=== PATIENT | female | born 1995 | race African-American/Black ===

== ENCOUNTER 2017-08-20 01:00 | Emergency (ER) | payer MEDICAID ==
[~2017-08-20 01:00] MED LIST: ALBU0.086 INH; ALBU8I INH; SPRI28TA PO
--- NOTE | 2017-08-20 02:02 | PD ---
HPI Chief Complaint Upper abdominal pain Date Seen: Aug 20, 2017 Time Seen: 01:55 Travel History International Travel<30 Days: No Contact w/Intl Traveler<30Days: No Known Affected Area: No History of Present Illness HPI 21-year-old black female G 2 P0 at [address] Paul complaints of upper abdominal pain this evening. Denies bleeding or leakage of fluid. heart rate tracing is reactive and that we see no contractions are regular basis Weeks Gestation: 36 Para: 0 : 2 History Obstetric History Obstetric History Early loss Social History Alcohol Use: No Tobacco Use: No Substance Abuse: No Allergies-Medications (Allergen,Severity, Reaction): Coded Allergies: No Known Allergies (Verified , 06/12/15) Home Meds Active Scripts Albuterol Sulfate 8 GM Inhaler (Ventolin Hfa) 8 Gm Aero, 1 PUFF INH Q4H Y for PRN, #1 BOX * SHAKE WELL BEFORE USE * Prov:Tom Bhandari MD 03/23/14 Albuterol Sulfate (Proventil Ud 0.083% (2.5 Mg/3 Ml)) 2.5 Mg/3 Ml Inha, 2.5 MG INH Q6 Y for WHEEZING, #30 BOX Prov:Tom Bhandari MD 03/23/14 Reported Medications Norgestimate-Ethinyl Estradiol (Sprintec 28) 0.25-35 mg-Mcg Tab, 1 TAB PO DAILY for Control, #1 PACK 0 Refills 09/20/16 Review of Systems General / Constitutional: No: Fever, Weight Gain, Chills, Other Eyes: No: Diploplia, Blurred Vision, Visual changes, Pain, Photophobia HENT: No: Headaches, Vertigo, Lightheadedness Cardiovascular: No: Irregular Rhythm, Chest Pain or Discomfort, Palpitations, Tachycardia, Syncope, Varicosities, Edema, Cyanosis Respiratory: No: Cough, Short of Breath, Other Gastrointestinal: Abdominal Pain, No: Nausea, Vomiting, Diarrhea Genitourinary: No: Decreased Urinary Output, Oliguria Musculoskeletal: No: Limited ROM, Weakness, Cramping, Edema, Pain Skin: No Rash, No Itching, No Dryness, No Lumps, No Change in Pigmentation, No Change in Nails, No Alopecia, No Lesions Neurologic: No: Weakness, Dizziness, Syncope, Focal Abnormalities, Coordination Problem, Headache, Slurred Speech, Seizures Psychiatric: No: Depression, Suicidal Ideations, Homicidal Ideation Endocrine: No: Heat Intolerance, Cold Intolerance, Polydipsia, Polyuria, Other Physical Exam Narrative GENERAL: Well-nourished, well-developed patient. SKIN: Warm and dry. HEAD: Normocephalic and atraumatic. EYES: No scleral icterus. No injection or drainage. ENT: No nasal drainage noted. Mucous membranes pink. Airway patent. NECK: Supple, trachea midline. No JVD. CARDIOVASCULAR: Regular rate and rhythm without murmurs, gallops, or rubs. RESPIRATORY: Breath sounds equal bilaterally. No accessory muscle use. BREASTS: Bilateral exam showed no masses , no retractions, no nipple discharge. ABDOMEN/GI: Abdomen soft, non-tender, bowel sounds present, no rebound, no guarding Gravid to [36-] weeks size Fundal Height: [36-] GENITOURINARY: External Genitalia: intact and normal in appearance BUS glands: [-] Cervix: [-post] Dilatation: [2-3-] Effacement: [-50] Station: [-3] Presentation: [vtx-] Membranes: [intact ] Uterine Contractions: [none seen-] FHT's: Category: [1-] Baseline: [-133] Reactive: [yes-] Variability: [-mod] Decels: [0-] EXTREMITIES: No cyanosis or edema. BACK: Nontender without obvious deformity. No CVA tenderness. NEUROLOGICAL: Awake and alert. Motor and sensory grossly within normal limits. Five out of 5 muscle strength in all muscle groups. Normal speech. Data Data Labs Urine dipstick is negative MDM Interpretation(s) Patient is a 21-year-old black female 36 weeks presents with upper abdominal pain. No bleeding or leakage of fluid. heart rate tracing is reactive. No regular contractions seen. Exam shows a cervix is 2-3 cm 50% and -3 very posterior, patient may been kaushal some to have this much cervical change and a primary up so that certainly could've been some minimal uterine activity going on and not seeing that now she's having much less pain now Plan Plan to discharge patient home to bedrest. The patient was offered a pain shot was she did not want. She can use Tylenol by mouth, bedrest, heating pad on the abdomen, drink plenty fluid for hydration. Diagnosis Diagnosis: Primary Impression: 36 weeks gestation of Additional Impression: Upper abdominal pain Disposition: 01 DISCHARGE HOME Condition: Stable Sander Edmond II, MD Aug 20, 2017 02:02
[2017-08-20 02:55] LABS: BLOOD, URINE NEG (NEG); GLUCOSE,URINE NEG (NEG); KETONE, URINE NEG (NEG); NITRITE,URINE NEG (NEG); PH, URINE 6.5 (5.0-8.5); URINE COLOR YELLOW (YELLW/STRAW)
[2017-08-20 03:15] LABS: BACTERIA, URINE MOD /hpf; CALCIUM OXALATE CRYSTALS,URINE OCC /hpf; COMMENT (UR) CULTURE INDICATED; CULTURE IF INDICATED CULTURE INDICATED; RBC, URINE 0-3 /hpf (0-3); SQUAMOUS EPITHELIAL CELL URINE > 8 /hpf (0-5)
== END 2017-08-20 02:03 | disposition home or self-care (01) ==
LOC: HOBED 01:00
DX: O26.893 Other specified pregnancy related conditions, third trimester (principal); R10.10 Upper abdominal pain, unspecified; Z3A.36 36 weeks gestation of pregnancy
CPT/HCPCS: 59025; 81001; 87086

== ENCOUNTER 2017-09-19 00:05 | Inpatient (IN) | payer MEDICAID ==
[2017-09-19] VITALS (179 sets, daily range): BP systolic 112–159; BP diastolic 64–131; PULSE 76–117; RESP 14–20; TEMP 98.6–99.6; O2SAT 98–100
[~2017-09-19] VITALS: Ht 165.1 cm; Wt 107.0 kg
[2017-09-19] MEDS ORDERED: LACTATED RINGER'S 1000 ML INJ 1,000 ML IV PRN (00:47)
--- NOTE | 2017-09-19 00:47 | HHI.HP ---
HPI Chief Complaint Contractions and leaking fluid Date Seen: Sep 19, 2017 Time Seen: 00:42 Travel History International Travel<30 Days: No Contact w/Intl Traveler<30Days: No Known Affected Area: No History of Present Illness HPI Patient is 22-year-old black female at 40 weeks who presents clinically contractions and leaking fluid her per vagina. Amnio sure is negative, however she is kaushal every other minute and dilated [address] Paul for care. Patient is GBS positive . heart rate tracing is reactive and contractions are seen every other minutes Weeks Gestation: 40 Para: 0 : 2 Last Menstrual Period: Sep 19, 2017 Miscarriage: 1 History Obstetric History Obstetric History 1 early loss Social History Alcohol Use: No Tobacco Use: No Substance Abuse: No Allergies-Medications (Allergen,Severity, Reaction): Coded Allergies: No Known Allergies (Verified , 06/12/15) Home Meds Active Scripts Albuterol Sulfate 8 GM Inhaler (Ventolin Hfa) 8 Gm Aero, 1 PUFF INH Q4H Y for PRN, #1 BOX * SHAKE WELL BEFORE USE * Prov:Tom Bhandari MD 03/23/14 Albuterol Sulfate (Proventil Ud 0.083% (2.5 Mg/3 Ml)) 2.5 Mg/3 Ml Inha, 2.5 MG INH Q6 Y for WHEEZING, #30 BOX Prov:Tom Bhandari MD 03/23/14 Reported Medications Norgestimate-Ethinyl Estradiol (Sprintec 28) 0.25-35 mg-Mcg Tab, 1 TAB PO DAILY for Control, #1 PACK 0 Refills 09/20/16 Review of Systems General / Constitutional: No: Fever, Weight Gain, Chills, Other Eyes: No: Diploplia, Blurred Vision, Visual changes, Pain, Photophobia HENT: No: Headaches, Vertigo, Lightheadedness Cardiovascular: No: Irregular Rhythm, Chest Pain or Discomfort, Palpitations, Tachycardia, Syncope, Varicosities, Edema, Cyanosis Respiratory: No: Cough, Short of Breath, Other Gastrointestinal: Abdominal Pain, No: Nausea, Vomiting, Diarrhea Genitourinary: No: Decreased Urinary Output, Oliguria Musculoskeletal: No: Limited ROM, Weakness, Cramping, Edema, Pain Skin: No Rash, No Itching, No Dryness, No Lumps, No Change in Pigmentation, No Change in Nails, No Alopecia, No Lesions Neurologic: No: Weakness, Dizziness, Syncope, Focal Abnormalities, Coordination Problem, Headache, Slurred Speech, Seizures Psychiatric: No: Depression, Suicidal Ideations, Homicidal Ideation Endocrine: No: Heat Intolerance, Cold Intolerance, Polydipsia, Polyuria, Other Physical Exam Narrative GENERAL: Well-nourished, well-developed patient. SKIN: Warm and dry. HEAD: Normocephalic and atraumatic. EYES: No scleral icterus. No injection or drainage. ENT: No nasal drainage noted. Mucous membranes pink. Airway patent. NECK: Supple, trachea midline. No JVD. CARDIOVASCULAR: Regular rate and rhythm without murmurs, gallops, or rubs. RESPIRATORY: Breath sounds equal bilaterally. No accessory muscle use. BREASTS: Bilateral exam showed no masses , no retractions, no nipple discharge. ABDOMEN/GI: Abdomen soft, non-tender, bowel sounds present, no rebound, no guarding Gravid to [40-] weeks size Fundal Height: [-40] GENITOURINARY: External Genitalia: intact and normal in appearance BUS glands: [-] Cervix: [-] Dilatation: [5-] Effacement: [80-] Station: [-1] Presentation: [vtx-] Membranes: [intact amnisure neg] Uterine Contractions: [q 2 min-] FHT's: Category: [-1] Baseline: [133-] Reactive: [yes-] Variability: [-mod] Decels: [0-] EXTREMITIES: No cyanosis or edema. BACK: Nontender without obvious deformity. No CVA tenderness. NEUROLOGICAL: Awake and alert. Motor and sensory grossly within normal limits. Five out of 5 muscle strength in all muscle groups. Normal speech. Caprini VTE Risk Assessment Caprini VTE Risk Assessment: No/Low Risk (score <= 1) Caprini Risk Assessment Model Point Value = 1 Point Value = 2 Point Value = 3 Point Value = 5 Age 41-60 Minor surgery BMI > 25 kg/m2 Swollen legs Varicose veins or History of unexplained or recurrent spontaneous Oral contraceptives or hormone replacement Sepsis (< 1 month) Serious lung disease, including pneumonia (< 1 month) Abnormal pulmonary function Acute myocardial infarction Congestive heart failure (< 1 month) History of inflammatory bowel disease Medical patient at bed rest Age 61-74 Arthroscopic surgery Major open surgery (> 45 min) Laparoscopic surgery (> 45 min) Malignancy Confined to bed (> 72 hours) Immobilizing plaster cast Central venous access Age >= 75 History of VTE Family history of VTE Factor V Leiden Prothrombin [id number] Lupus anticoagulant Anticardiolipin antibodies Elevated serum homocysteine Heparin-induced thrombocytopenia Other congenital or acquired thrombophilia Stroke (< 1 month) Elective arthroplasty Hip, pelvis, or leg fracture Acute spinal cord injury (< 1 month) Prophylaxis Regimen Total Risk Factor Score Risk Level Prophylaxis Regimen 0-1 Low Early ambulation 2 Moderate Order ONE of the following: *Sequential Compression Device (SCD) *Heparin 5000 units SQ BID 3-4 Higher Order ONE of the following medications: *Heparin 5000 units SQ TID *Enoxaparin/Lovenox 40 mg SQ daily (WT < 150 kg, CrCl > 30 mL/min) *Enoxaparin/Lovenox 30 mg SQ daily (WT < 150 kg, CrCl > 10-29 mL/min) *Enoxaparin/Lovenox 30 mg SQ BID (WT < 150 kg, CrCl > 30 mL/min) AND/OR *Sequential Compression Device (SCD) 5 or more Highest Order ONE of the following medications: *Heparin 5000 units SQ TID (Preferred with Epidurals) *Enoxaparin/Lovenox 40 mg SQ daily (WT < 150 kg, CrCl > 30 mL/min) *Enoxaparin/Lovenox 30 mg SQ daily (WT < 150 kg, CrCl > 10-29 mL/min) *Enoxaparin/Lovenox 30 mg SQ BID (WT < 150 kg, CrCl > 30 mL/min) AND *Sequential Compression Device (SCD) Data Data Orders Orders Ob (2e) Additional Admit Info (09/19/17 00:30) Group B Strep: Positive Labs amnisure neg Assessment/Plan Assessment and Plan Patient is 21-year-old black female at 40 weeks presents in active labor, cervix is 5/80/-1/vertex and contractions are every other minute ., amnio sure is negative , heart rate tracing is reactive, GBS positive Plan-admit to labor and delivery, managed labor, augment when necessary. Began IV antibiotics And anticipate vaginal delivery Sander Edmond II, MD Sep 19, 2017 00:47
[2017-09-19] MEDS: LACTATED RINGER'S 1000 ML INJ 1,000 ML IV SCH ×2 (00:51→08:43)
[2017-09-19] MEDS ORDERED: PENICILLIN G POTASSIUM INJ 5,000,000 UNITS in SODIUM CHLORIDE 0.9% INJ 100 ML IV ONE (01:00)
[2017-09-19] MEDS ORDERED: MINERAL OIL 10 ML VIAL TOPICAL PRN (01:00)
[2017-09-19] MEDS ORDERED: LIDOCAINE HCL 1% 50 ML VIAL I-DERMAL PRN (01:00)
[2017-09-19] MEDS ORDERED: CITRIC ACID-SODIUM CITRATE LIQ 30 ML UDC PO SCH (01:00)
[2017-09-19] MEDS ORDERED: OXYTOCIN 30 UNITS-500ML PREMIX 500 ML IV ONE (01:00)
[2017-09-19] MEDS ORDERED: SODIUM CHLORID 0.9% 500 ML INJ 500 ML IV PRN (01:00)
[2017-09-19] MEDS ORDERED: LIDOCAINE HCL 1% 50 ML VIAL INFIL PRN (01:00)
[2017-09-19] MEDS ORDERED: IRON1TAB7 PO (01:00)
[2017-09-19] MEDS ORDERED: SODIUM CHLOR 0.9% 1000 ML INJ 1,000 ML IV PRN (01:07)
[2017-09-19 01:28] LABS: AUTOMATED NEUTROPHIL # 5.1 TH/MM3 (1.8-7.7); BASOPHIL % 0.6 % (0.0-2.0); EOSINOPHIL # 0.4 TH/MM3 (0-0.4); EOSINOPHIL % 4.8 % (0.0-4.0); HEMATOCRIT 34.1 % (35.0-46.0); HEMO FLAGS DIFF FINAL; LYMPH % 26.3 % (9.0-44.0); LYMPHOCYTE # 2.4 TH/MM3 (1.0-4.8); MEAN CELL VOLUME 89.7 FL (80.0-100.0); MEAN CORPUSCULAR HEMOGLOBIN 30.3 PG (27.0-34.0); MEAN CORPUSCULAR HGB CONC 33.8 % (32.0-36.0); MONO % 11.5 % (0.0-8.0); NEUT % 56.8 % (16.0-70.0); PLATELET COUNT 126 TH/MM3 (150-450)
[2017-09-19 01:37] LABS: BACTERIA, URINE MOD /hpf; BLOOD, URINE SMALL (NEG); COMMENT (UR) CULTURE INDICATED; CULTURE IF INDICATED CULTURE INDICATED; GLUCOSE,URINE NEG (NEG); KETONE, URINE NEG (NEG); NITRITE,URINE NEG (NEG); PH, URINE 6.5 (5.0-8.5); RENAL EPITHELIAL CELLS 2 /hpf; SQUAMOUS EPITHELIAL CELL URINE 30 /hpf (0-5); URINE COLOR LIGHT-YELLOW (YELLW/STRAW)
[2017-09-19] MEDS ORDERED: ePHEDrine/NS 25 MG/5 ML SYRINGE ONE (01:52)
[2017-09-19] MEDS ORDERED: fentaNYL 2MCG-BUPIV 0.125% INJ 100 ML ONE (01:52)
[2017-09-19] MEDS ORDERED: NO SYSTEM NARCOTICS PRN (02:45)
[2017-09-19] MEDS ORDERED: fentaNYL 2MCG-BUPIV 0.125% 100 ML EPIDURAL SCH (02:45)
[2017-09-19] MEDS ORDERED: ePHEDrine/NS 25 MG/5 ML SYRINGE IV PUSH PRN (02:45)
[2017-09-19] MEDS ORDERED: DO NOT ADMINISTER ANTICOAGULANTS PRN (02:45)
[2017-09-19] MEDS ORDERED: LIDOCAINE 2% JELLY 30 ML TUBE OTHER PRN (04:30)
[2017-09-19] MEDS ORDERED: PENICILLIN G POTASSIUM INJ 2,500,000 UNITS in SODIUM CHLORIDE 0.9% INJ 100 ML IV SCH (05:00)
[2017-09-19 06:07] LABS: ALT (GPT) 17 U/L (10-53); ANION GAP 9 MEQ/L (5-15); AST (GOT) 14 U/L (15-37); BICARBONATE 24.1 MEQ/L (21.0-32.0); BLOOD UREA NITROGEN 10 MG/DL (7-18); CHLORIDE 103 MEQ/L (98-107); GLOMERULAR FILTRATION RATE 129 ML/MIN (>89); POTASSIUM 3.9 MEQ/L (3.5-5.1); SODIUM (NA) 136 MEQ/L (136-145)
[2017-09-19 06:09] LABS: ALKALINE PHOSPHATASE 318 U/L (45-117); TOTAL BILIRUBIN ADULT 0.5 MG/DL (0.2-1.0)
--- NOTE | 2017-09-19 07:20 | HHI.PR ---
[employer] Note Note late entry for 0515 today, Called nursing for update on patient as noticed that most of her blood pressures are mild range, pt is w/o history of hypertensive disease per their report, no ACOGs scanned into outpatient EMR for review, nursing states pt is w/o headaches, visual changes, epigastric or RUQ pain, status reassure, Will not begin mag for seizure ppx at this time. Collect BMP and P:C to complete work up. Pt has thrombocytopenia on admission CBC, likely gestational as baseline in June was 181. At this time continue expectant mangment. Pt SROM around 1100pm last night and kaushal regularly, PCN for GBS ppx. . Jose E Sun MD Sep 19, 2017 07:19
[2017-09-19] MEDS ORDERED: OXYTOCIN 30 UNITS/NS 500ML PREMIX IV SCH (08:30)
--- NOTE | 2017-09-19 08:39 | PD.LABORPN ---
Subjective Subjective comfortable with epidural Objective Vital Signs Vital Signs Date Time Temp Pulse Resp B/P (MAP) Pulse Ox O2 Delivery O2 Flow Rate FiO2 09/19/17 08:15 107 09/19/17 08:15 104 144/91 (108) 09/19/17 08:10 105 09/19/17 08:05 104 09/19/17 08:00 109 09/19/17 08:00 102 141/99 (113) 09/19/17 07:55 112 09/19/17 07:50 108 09/19/17 07:45 107 128/78 (95) 09/19/17 07:45 108 09/19/17 07:40 102 09/19/17 07:35 108 09/19/17 07:30 111 144/93 (110) 09/19/17 07:30 101 09/19/17 07:20 107 09/19/17 07:15 109 135/90 (105) 09/19/17 07:15 112 09/19/17 07:10 110 09/19/17 07:05 111 09/19/17 07:01 117 130/78 (95) 09/19/17 07:00 108 09/19/17 06:45 114 149/93 (111) 09/19/17 06:45 112 09/19/17 06:40 110 09/19/17 06:35 112 09/19/17 06:30 106 152/97 (115) 09/19/17 06:30 109 09/19/17 06:25 111 09/19/17 06:20 106 09/19/17 06:15 111 09/19/17 06:15 102 143/90 (107) 09/19/17 06:10 106 09/19/17 06:05 105 09/19/17 06:00 98 09/19/17 06:00 99 137/80 (99) 09/19/17 05:55 98 09/19/17 05:50 98 09/19/17 05:45 95 09/19/17 05:45 99 144/81 (102) 09/19/17 05:40 95 09/19/17 05:35 95 09/19/17 05:30 93 09/19/17 05:30 102 153/90 (111) 09/19/17 05:25 106 12/18/17 05:20 103 12/18/17 05:16 94 148/87 (107) 18/17 05:15 95 18/17 05:10 100 18/17 05:05 94 17 05:00 94 17 05:00 102 152/93 (112) 17 04:55 97 18/17 04:50 97 18/17 04:46 94 112/78 (89) 17 04:45 89 18/17 04:42 98.7 14 18/17 04:40 97 18/17 04:35 94 18/17 04:30 99 18/17 04:30 102 150/100 (117) 17 04:25 105 09/19/17 04:20 104 18/17 04:16 103 145/71 (95) 17 04:15 100 09/19/17 04:10 101 09/19/17 04:05 115 17 04:00 115 09/19/17 03:55 106 18/17 03:50 96 09/19/17 03:45 100 18/17 03:45 94 122/84 (97) 17 03:40 99 18/17 03:35 92 18/17 03:30 92 120/72 (88) 1817 03:30 90 18/17 03:25 90 18/17 03:20 85 18/17 03:18 87 126/72 (90) 17 03:15 96 18/17 03:15 100 18/17 03:15 94 18/17 03:10 93 18/17 03:10 100 18/17 03:10 88 18/17 03:05 98 09/19/17 03:05 100 17 03:05 105 18/17 03:00 100 18/17 03:00 82 1218/17 03:00 79 1218/17 03:00 82 157/131 (140) 18/17 02:56 159/91 (113) 17 02:56 81 12/18/17 02:55 86 12/18/17 02:55 85 12/18/17 02:55 100 18/17 02:50 86 1218/17 02:50 84 18/17 02:50 100 18/17 02:50 76 152/94 (113) 18/17 02:45 79 149/97 (114) 99 18/17 02:45 79 18/17 02:45 79 18/17 02:41 78 145/91 (109) 18/17 02:40 80 1218/17 02:40 80 100 18/17 02:35 85 18/17 02:35 154/97 (116) 100 18/17 02:35 92 18/17 02:30 89 1218/17 02:30 88 100 18/17 02:30 87 152/101 (118) 18/17 02:25 96 157/93 (114) 18/17 02:25 91 18/17 02:25 91 100 18/17 02:21 91 149/99 (116) 18/17 02:20 87 1218/17 02:20 86 100 18/17 02:15 86 153/96 (115) 18/17 02:15 87 18/17 02:15 86 100 18/17 02:11 84 158/94 (115) 18/17 02:10 100 18/17 02:10 91 18/17 02:10 88 18/17 02:05 93 100 18/17 02:05 94 150/94 (112) 18/17 02:05 95 18/17 02:00 87 18/17 02:00 90 100 18/17 01:55 88 18/17 01:50 90 18/17 01:45 82 1218/17 01:40 86 12/18/17 01:35 84 18/17 01:30 87 1218/17 01:25 88 1218/17 01:20 84 18/17 01:15 88 18/17 01:10 90 18/17 01:05 94 12/18/17 01:00 90 Objective Pelvic Exam: Cervix: [-] Dilatation: [-] 6 Effacement: [-] 90 Station: [-] -1 Presentation: [-] vtx Membranes: [intact or ruptured] srom Uterine Contractions: [-] FHT's: Category: [-] 1 Baseline: [-] Reactive: [-] R Variability: [-] Decels: [-] Weeks Gestation: 40 Gest Age Assessed Date: Sep 19, 2017 Gest Age Assessed Time: 08:38 Pt started active labor?: Yes Active labor start date: Sep 19, 2017 Active labor start time: 00:00 Medical induction of labor?: No Artificial rupture of membrane: No Assessment/Plan Problem List: (1) Group beta Strep positive ICD Codes: B95.1 - Streptococcus, group B, as the cause of diseases classified elsewhere (2) Term ICD Codes: Z34.80 - Encounter for supervision of other normal , unspecified trimester Assessment and Plan follow labor progress, has epid start pit anticipate Marina Orta MD Sep 19, 2017 08:39
--- NOTE | 2017-09-19 13:58 | PD.OB.DELI ---
Weeks gestation: 40 Gest age assessed date: Sep 19, 2017 Gest age assessed time: 08:38 Pt started active labor?: Yes Active labor start date: Sep 19, 2017 Active labor start time: 00:00 Medical induction of labor?: No Artificial rupture of membrane: No Anesthesia: Epidural Episiotomy: Midline Vaginal Delivery: Normal (LOT) Nuchal Cord: x1 Delayed cord clamping (45 sec): No Shoulder Dystocia: Suprapubic pressure given : Male Delivery date: Sep 19, 2017 Delivery time: 13:21 One Minute : 5 Five Minute : 7 Ten Minute : 9 Weight: 3610g Placenta: Spontaneous delivery Laceration: 2 deg Repair: Chromic interrupted, Vicryl interrupted Estimated blood loss: 350cc Marina Orta MD Sep 19, 2017 13:58
[2017-09-19] MEDS ORDERED: WITCH HAZEL 50%/GLYCERIN 12.5% 40 PAD JAR TOPICAL PRN (14:00)
[2017-09-19] MEDS ORDERED: BENZOCAINE 20% TOPICAL SPRAY 60 ML CAN TOPICAL PRN (14:00)
[2017-09-19] MEDS ORDERED: OXYTOCIN 30 UNITS-500ML PREMIX 500 ML IV SCH (14:00)
[2017-09-19] MEDS ORDERED: ALUMINUM/MAGNESIUM/SIMETH 30 ML CUP PO PRN (14:00)
[2017-09-19] MEDS ORDERED: oxyCODONE/ACETAMINOPHEN 5 MG/325 MG TAB PO PRN (14:00)
[2017-09-19] MEDS ORDERED: SODIUM CHLORIDE 0.9% FLUSH 10 ML FLUSH IV FLUSH PRN (14:00)
[2017-09-19] MEDS ORDERED: ACETAMINOPHEN 325 MG TAB PO PRN (14:00)
[2017-09-19] MEDS ORDERED: IBUPROFEN 800 MG TAB PO PRN (14:00)
[2017-09-19] MEDS ORDERED: ONDANSETRON ODT 4 MG TAB PO PRN (14:00)
[2017-09-19] MEDS ORDERED: DOCUSATE SODIUM 50 MG/SENNA 8.6 MG TAB PO PRN (14:00)
[2017-09-19] MEDS ORDERED: MEASLES, MUMPS, RUBELLA VACCINE 0.5 ML VIAL SQ ONE (16:00)
[2017-09-19] MEDS ORDERED: DIPHTH/TETANUS/ACEL PERTUSSIS (BOOSTER) 0.5 ML VIAL/PFS IM ONE (16:00)
[2017-09-19] MEDS ORDERED: MISOPROSTOL 200 MCG TAB PO ONE (18:00)
[2017-09-19] MEDS ORDERED: ZOLPIDEM TARTRATE 5 MG TAB PO PRN (21:00)
[2017-09-19] MEDS ORDERED: SODIUM CHLORIDE 0.9% FLUSH 10 ML FLUSH IV FLUSH SCH (21:00)
[2017-09-20 01:45] VITALS: BP 122/78; PULSE 93; RESP 17; TEMP 98.3; O2SAT 99
[2017-09-20] MEDS ORDERED: IBUP1TAB7 PO (07:43)
--- NOTE | 2017-09-20 07:43 | HHI.OB ---
Subjective Post Day: 1 Remarks s/p FT of healthy male infant, Objective Vitals/I&O Vital Signs Date Time Temp Pulse Resp B/P (MAP) Pulse Ox O2 Delivery O2 Flow Rate FiO2 09/20/17 01:45 93 122/78 (93) 09/20/17 01:45 98.3 17 99 09/19/17 20:45 99.6 20 98 09/19/17 20:45 101 132/84 (100) 09/19/17 15:50 81 136/89 (105) 09/19/17 15:50 98.6 16 98 09/19/17 15:14 99.1 09/19/17 14:50 18 09/19/17 14:45 86 131/83 (99) 09/19/17 14:31 18 09/19/17 14:30 88 136/90 (105) 09/19/17 14:27 98.6 09/19/17 14:20 98.6 09/19/17 14:20 17 09/19/17 14:15 92 133/77 (95) 09/19/17 14:05 18 09/19/17 14:00 93 132/77 (95) 09/19/17 13:45 100 138/69 (92) 09/19/17 13:36 99 136/64 (88) 09/19/17 13:15 95 09/19/17 13:10 104 09/19/17 13:05 101 09/19/17 13:00 93 09/19/17 12:55 114 09/19/17 12:50 103 09/19/17 12:45 102 09/19/17 12:40 106 09/19/17 12:35 88 09/19/17 12:31 89 148/99 (115) 09/19/17 12:30 20 09/19/17 12:30 89 09/19/17 12:28 99.4 09/19/17 12:25 89 09/19/17 12:20 100 09/19/17 12:15 97 09/19/17 12:10 91 09/19/17 12:05 96 09/19/17 12:02 91 149/77 (101) 09/19/17 12:00 98 09/19/17 11:55 93 12/18/17 11:50 89 12/18/17 11:45 87 12/18/17 11:40 94 12/18/17 11:38 86 150/87 (108) 12/18/17 11:35 96 12/18/17 11:30 89 12/18/17 11:30 19 12/18/17 11:30 18 12/18/17 11:25 92 12/18/17 11:20 93 12/18/17 11:15 102 12/18/17 11:10 91 12/18/17 11:05 95 12/18/17 11:00 107 12/18/17 10:55 88 12/18/17 10:50 95 12/18/17 10:45 93 12/18/17 10:40 98 12/18/17 10:35 93 12/18/17 10:30 90 12/18/17 10:25 91 12/18/17 10:20 95 12/18/17 10:15 93 12/18/17 10:10 103 12/18/17 10:05 94 12/18/17 10:00 93 12/18/17 09:55 97 12/18/17 09:50 98 12/18/17 09:45 94 12/18/17 09:40 97 12/18/17 09:35 98 12/18/17 09:31 99 141/83 (102) 18/17 09:30 18 12/18/17 09:30 98 12/18/17 09:25 110 12/18/17 09:20 105 12/18/17 09:15 105 12/18/17 09:10 109 12/18/17 09:05 106 12/18/17 09:03 98.6 12/18/17 09:00 99 12/18/17 09:00 102 139/81 (100) 1218/17 08:55 102 12/18/17 08:50 110 12/18/17 08:45 104 12/18/17 08:40 116 12/18/17 08:35 109 12/18/17 08:31 102 131/81 (98) 18/17 08:30 105 12/18/17 08:25 103 12/18/17 08:20 102 12/18/17 08:15 107 12/18/17 08:15 104 144/91 (108) 1218/17 08:10 105 09/19/17 08:05 104 09/19/17 08:00 109 09/19/17 08:00 102 141/99 (113) 09/19/17 08:00 18 09/19/17 07:55 112 09/19/17 07:50 108 09/19/17 07:45 107 128/78 (95) 09/19/17 07:45 108 Objective Remarks GENERAL: Well-nourished, well-developed patient. CARDIOVASCULAR: Regular rate and rhythm without murmurs, gallops, or rubs. RESPIRATORY: Breath sounds equal bilaterally. No accessory muscle use. ABDOMEN/GI: Abdomen soft, non-tender. Fundus: Firm, non-tender at umbilicus. GENITOURINARY: Light bleeding. EXTREMITIES: No cyanosis or edema, non-tender, without signs of DVT. Medications and IVs Current Medications Medications (Trade) Dose Ordered Sig/Itzel Route Start Time Stop Time Status Last Admin (NS Flush) 2 ml BID IV FLUSH 09/19/17 21:00 (NS Flush) 2 ml UNSCH PRN IV FLUSH 09/19/17 14:00 (Tylenol) 650 mg Q4H PRN PO 09/19/17 14:00 (Motrin) 800 mg Q8H PRN PO 09/19/17 14:00 (Percocet 5-325 Mg) 1 tab Q4H PRN PO 09/19/17 14:00 (Americaine 20% Top Spr) 1 spray Q4H PRN TOPICAL 09/19/17 14:00 (Tucks Pads) 1 applic QID PRN TOPICAL 09/19/17 14:00 (Miriam-Colace) 2 tab Q12H PRN PO 09/19/17 14:00 (Ambien) 5 mg HS PRN PO 09/19/17 21:00 (Mag-Al Plus Susp Liq) 15 ml Q8H PRN PO 09/19/17 14:00 (Zofran Odt) 4 mg Q6H PRN PO 09/19/17 14:00 Assessment/Plan Problem List: (1) (spontaneous vaginal delivery) ICD Codes: O80 - Encounter for full-term uncomplicated delivery Status: Acute (2) Term ICD Codes: Z34.80 - Encounter for supervision of other normal , unspecified trimester Status: Acute (3) Group beta Strep positive ICD Codes: B95.1 - Streptococcus, group B, as the cause of diseases classified elsewhere Status: Acute Assessment and Plan PPD#1 routine supportive care pt desires to see exchange consultant again today did NOT pay for circ routine d/c planning for tmrw Discharge Planning routine Jenny Augustin MD Sep 20, 2017 07:43
[2017-09-20 08:00] VITALS: BP 127/83; PULSE 96; RESP 18; TEMP 98.5; O2SAT 97
[2017-09-20 20:00] VITALS: BP 148/91; PULSE 100; RESP 20; TEMP 98.2; O2SAT 100
[2017-09-21 08:00] VITALS: BP 142/85; PULSE 101; RESP 18; TEMP 98.2
--- NOTE | 2017-09-21 13:52 | HHI.OB ---
Subjective Post Day: 2 Remarks PPD#2,stable, cleared for discharge Objective Vitals/I&O Vital Signs Date Time Temp Pulse Resp B/P (MAP) Pulse Ox O2 Delivery O2 Flow Rate FiO2 09/21/17 08:00 98.2 101 18 142/85 (104) 09/20/17 20:00 100 20 148/91 (110) 100 09/20/17 20:00 98.2 Objective Remarks GENERAL: Well-nourished, well-developed patient. CARDIOVASCULAR: Regular rate and rhythm without murmurs, gallops, or rubs. RESPIRATORY: Breath sounds equal bilaterally. No accessory muscle use. ABDOMEN/GI: Abdomen soft, non-tender. Fundus: Firm, non-tender at umbilicus. GENITOURINARY: Light bleeding. EXTREMITIES: No cyanosis or edema, non-tender, without signs of DVT. Medications and IVs Current Medications Medications (Trade) Dose Ordered Sig/Itzel Route Start Time Stop Time Status Last Admin (NS Flush) 2 ml BID IV FLUSH 09/19/17 21:00 (NS Flush) 2 ml UNSCH PRN IV FLUSH 09/19/17 14:00 (Tylenol) 650 mg Q4H PRN PO 09/19/17 14:00 (Motrin) 800 mg Q8H PRN PO 09/19/17 14:00 (Percocet 5-325 Mg) 1 tab Q4H PRN PO 09/19/17 14:00 (Americaine 20% Top Spr) 1 spray Q4H PRN TOPICAL 09/19/17 14:00 (Tucks Pads) 1 applic QID PRN TOPICAL 09/19/17 14:00 (Miriam-Colace) 2 tab Q12H PRN PO 09/19/17 14:00 (Ambien) 5 mg HS PRN PO 09/19/17 21:00 (Mag-Al Plus Susp Liq) 15 ml Q8H PRN PO 09/19/17 14:00 (Zofran Odt) 4 mg Q6H PRN PO 09/19/17 14:00 Assessment/Plan Problem List: (1) (spontaneous vaginal delivery) ICD Codes: O80 - Encounter for full-term uncomplicated delivery Status: Acute (2) Term ICD Codes: Z34.80 - Encounter for supervision of other normal , unspecified trimester Status: Acute (3) Group beta Strep positive ICD Codes: B95.1 - Streptococcus, group B, as the cause of diseases classified elsewhere Status: Acute Assessment and Plan PPD#2 cleared for d/c home routine supportive care did NOT pay for circ routine d/c planning for today Discharge Planning routine Michael Worthy MD Sep 21, 2017 13:52
--- NOTE | 2017-09-21 15:12 | HHI.DS ---
Admission Date Sep 19, 2017 at 00:33 Admitting Diagnosis Diagnosis: Delivery Date: Sep 19, 2017 Vaginal Delivery: Normal Infant: Male Brief History Patient is 22-year-old black female at 40 weeks who presents clinically contractions and leaking fluid her per vagina. Amnio sure is negative, however she is kaushal every other minute and dilated [address] Paul for care. Patient is GBS positive . heart rate tracing is reactive and contractions are seen every other minutes Pt Condition on Discharge: Good Discharge Disposition: Discharge Home Discharge Instructions Diet Instructions: As Tolerated, No Restrictions Activities You Can Perform: Shower Only-No Bath Activities to Avoid: Driving for 24 hrs, Prolonged Standing, Strenuous Activity , Sexual Activity Michael Worthy MD Sep 21, 2017 15:12
== END 2017-09-21 17:17 | disposition home or self-care (01) | DRG 775 ==
LOC: HOBED 00:05 → H2EB 00:33 → H1EA 15:26
PROVIDERS: ADMIT Obstetrics & Gynecology; ATTEND Obstetrics & Gynecology
PROC: 10E0XZZ Delivery of Products of Conception, External Approach (ICD-10-PCS; principal; 2017-09-19)
PROC: 0KQM0ZZ Repair Perineum Muscle, Open Approach (ICD-10-PCS; 2017-09-19)
PROC: 0W8NXZZ Division of Female Perineum, External Approach (ICD-10-PCS; 2017-09-19)
PROC: 3E0R3BZ Introduction of Anesthetic Agent into Spinal Canal, Percutaneous Approach (ICD-10-PCS; 2017-09-19)
PROC: 00HU33Z Insertion of Infusion Device into Spinal Canal, Percutaneous Approach (ICD-10-PCS; 2017-09-19)
DX: O99.824 Streptococcus B carrier state complicating childbirth (principal); O99.12 Other diseases of the blood and blood-forming organs and certain disorders involving the immune mechanism complicating childbirth; O70.1 Second degree perineal laceration during delivery; O66.0 Obstructed labor due to shoulder dystocia; Z3A.40 40 weeks gestation of pregnancy; Z37.0 Single live birth
CPT/HCPCS: 59025; 80053; 80307; 81001; 82570; 84112; 84156; 85025; 86900; 86901; 87086; 90715; J2540; J2590; J3010; J7120